=== PATIENT | male | born 1980 | race Two or more races ===

== ENCOUNTER 2021-06-09 10:11 | Emergency (ER) | payer OTHER, SELFPAY ==
--- NOTE | ~2021-06-09 | CT_ITS ---
EXAMINATION: CT CHEST, ABDOMEN AND PELVIS WITH CONTRAST CLINICAL INFORMATION: Fall from 15 feet. COMPARISON: None TECHNIQUE: 5 mm thin axial and reformatted 3 mm thin sagittal and axial images of chest, abdomen pelvis were obtained following IV 85 mL Omnipaque 350. DLP [id number] FINDINGS: Chest: The lungs are well-expanded and clear of acute pneumonic process. There is no prior nodules, mass or lung contusion. There is no pleural effusion, thickening or calcification. The heart size and the great vessels are normal caliber. There is no aortic dissection or aneurysm. There is no mediastinal mass or hematoma. The central trachea and the bronchi widely patent. No pericardial effusion seen. The thyroid lobes are symmetrical and normal. The axilla and chest wall is unremarkable There is no osseous abnormality. Especially there is no rib fracture. Abdomen and pelvis: There is mild hepatomegaly with diffuse attenuation of liver. No focal lesion or intrahepatic ductal dilatation seen. The gallbladder appears unremarkable. Visualized spleen, pancreas and bilateral adrenal glands unremarkable. Both kidneys are normal size, shape and position. No renal calculi, enhancing mass, cyst or hydronephrosis seen. There is no laceration. The bowel gas pattern is nonspecific scattered stool in the right colon. The small bowel loops are normal caliber. Appendix is normal caliber. No free air or free fluid seen. The urinary bladder is unremarkable. The prostate gland is normal size. No abnormal pelvic lymph nodes. Bone windows reveal. No lytic or sclerotic process. There is no visible fracture. CT/CT abdomen pelvis w con IMPRESSION: No traumatic abnormality seen involving the CT chest, abdomen pelvis. Diffuse hepatic steatosis without focal lesion.
--- NOTE | ~2021-06-09 | CT_ITS ---
EXAMINATION: CT CERVICAL SPINE WITHOUT CONTRAST CLINICAL INFORMATION: 15 foot fall at work with head, neck, chest, and abdominal pain COMPARISON: None TECHNIQUE: CT of the cervical spine without intrathecal contrast. This CT examination was performed using dose optimization techniques as appropriate, variously including the following: *Automated exposure control *Adjustment of mA and/or kV according to patient size (this includes techniques or standardized protocols for targeted exams where dose is matched to indication/reason for exam; i.e. extremities or head) *Use of iterative reconstruction technique DLP: 543.16 mGy-cm FINDINGS: No abnormal prevertebral soft tissue swelling is seen. No acute cervical spine fracture is noted. Disc spaces are generally maintained. Pterygoid plates intact. Visualized paranasal sinuses and mastoid air cells unremarkable. No mandibular joint abnormalities appreciated. No lung apical abnormality appreciated. CT/CT cervical spine wo con IMPRESSION: No acute cervical spine fracture.
--- NOTE | ~2021-06-09 | CT_ITS ---
EXAMINATION: CT HEAD WITHOUT CONTRAST CLINICAL INFORMATION: Fall from 15 feet with head, neck, chest, and abdominal pain. COMPARISON: None TECHNIQUE: Contiguous axial imaging was performed from the skull base to vertex without intravenous administration of contrast. This CT examination was performed using dose optimization techniques as appropriate, variously including the following: *Automated exposure control *Adjustment of mA and/or kV according to patient size (this includes techniques or standardized protocols for targeted exams where dose is matched to indication/reason for exam; i.e. extremities or head) *Use of iterative reconstruction technique DLP: 624 mGy-cm FINDINGS: There is no evidence of acute intracranial hemorrhage or territorial infarction. No abnormal mass effect or midline shift is seen. Parnell to white matter differentiation is well preserved. No extra-axial fluid collections are identified. The ventricles are normal in size. There is a right sided scalp hematoma. There is no abnormal attenuation within the brain parenchyma. The osseous structures are normal. The mastoid air cells and visualized portions of the paranasal sinuses are well aerated. CT/CT head/brain wo con IMPRESSION: No acute intracranial pathology.
[2021-06-09 10:15] VITALS: BP 155/70; PULSE 77; RESP 16; O2SAT 97; BMI 29.6
[2021-06-09] MEDS: oxyCODONE HCl Immed Release 5 MG TABLET PO (11:24)
[2021-06-09] MEDS: Acetaminophen 325 MG TABLET 975 MG PO (11:24)
[2021-06-09] MEDS: 0.9 % Sodium Chloride 1,000 ML 999 ML IVCONT (11:25)
[2021-06-09 11:37] LABS: MANUAL DIFF FLAG NO
[2021-06-09 11:41] LABS: Basophils Percent Auto 0.4 % (0-2); Eosinophils Absolute Auto 0.1 X10*3/uL (0.0-0.4); Eosinophils Percent Auto 0.6 % (0-4); Hematocrit 43.9 % (42.0-52.0); Hemoglobin 14.7 g/dl (14.0-18.0); Imm Gran Abs Auto 0.04 X10*3/uL (0.00-0.03); Imm Gran Pct Auto 0.5 % (0.0-0.4); Lymphocytes Absolute Auto 1.8 X10*3/uL (1.2-4.9); Lymphocytes Percent Auto 23.3 % (20-40); Mean Corpuscular HGB Conc 33.5 g/dl (31.0-36.0); Mean Corpuscular Hemoglobin 28.7 pg (27.0-33.0); Mean Corpuscular Volume 85.6 fL (80.0-98.0); Mean Platelet Volume 9.6 fL (9.4-12.4); Monocytes Absolute Auto 0.6 X10*3/uL (0.1-1.2); Monocytes Percent Auto 7.5 % (2-11); Neutrophils Absolute Auto 5.2 x10*3/uL (2.0-8.3); Neutrophils Percent Auto 67.7 % (45-73); Platelet Count 334 X10*3/uL (160-400); Red Blood Count 5.13 X10*6/uL (4.60-5.80); Red Cell Distribution Width 13.6 % (11.0-16.0); White Blood Count 7.7 X10*3/uL (4.8-10.8)
--- NOTE | 2021-06-09 11:45 | ED_ITS ---
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 He reports that he did hit his head and the right side of his head/scalp is very swollen and he is having pain there. Although he denies loss of consciousness or prolonged down time. He also reports right neck pain and rib cage pain. He denies any dizziness, chest pain, shortness of breath, dyspnea on exertion, orthopnea, palpitations, abdominal pain, urinary incontinence or retention, bowel incontinence or retention or any other injuries complaints or concerns at this time. He denies being on any blood thinners. MD complaint: fall Onset (ago): minute(s) (Prior to arrival) Fall from: from height (distance) (15 feet ) Fall witnessed: yes, by bystander (co-workers) Place fall occurred: work Loss of consciousness: none Prolonged down time: no Symptoms prior to fall: none Context: tripped/slipped Location of injury: head, neck, chest and abdomen Severity: severe Severity scale (1-10): >10 Quality: aching, spasming and throbbing Associated symptoms (after fall): neck pain and abdominal pain Related Data Previous Rx's Medication Instructions Recorded acetaminophen 500 mg tablet 1,000 mg PO QID PRN #14 tab 06/09/21 (Tylenol Extra Strength) cyclobenzaprine 10 mg tablet 10 mg PO Q8H PRN #14 tab 06/09/21 oxycodone 5 mg tablet 5 mg PO Q6H PRN #14 tab 06/09/21 Allergies Allergy/AdvReac Type Severity Reaction Status Date / Time No Known Allergies Allergy Verified 06/09/21 10:15 Review of Systems Review of Systems: Constitutional : No changes in activity, No lethargy, No recent prior head injury, No agitation, No increased fussiness ENT/Mouth : No Ear Pain, No Nasal discharge/drainage Eyes: No Eye Pain, No Swelling, No Redness, No Foreign Body, No Vision Changes Cardiovascular : No Chest Pain, No SOB Respiratory : No Cough Gastrointestinal : No Nausea, No Vomiting, No abdominal Pain Genitourinary : No Dysuria, No Urinary Frequency, No Urinary Incontinence, No Urgency, No Flank Pain Musculoskeletal : + head pain, neck pain, right rib cage pain, no joint pain, No neck stiffness, No back pain/injury Skin : No lacerations Neuro : No unsteady gait, No Paresthesias, No Loss of Consciousness, No altered mental status, No Headache Yes all other systems are reviewed and are negative COUNTS INCLUDE 234 BEDS AT THE [facility] Past Medical History Attestation statement: The following information was validated with the patient. Medical History No known health problems Social History Social History Advance Directives: No Advance Directives Information Provided: No Physical Exam Vital Signs: Vital Signs: Last Vital Signs Pulse 77 06/09/21 10:15 Resp 16 06/09/21 10:15 BP 155/70 H 06/09/21 10:15 Pulse Ox 97 06/09/21 10:15 BMI result Body Mass Index 29.6 vital signs have been reviewed as normal and appeared to be correct. Blood pressure 155/70. Heart rate normal. Respiration rate normal. Temperature normal. Oxygen saturation normal. Appearance: Alert. Oriented X3. No acute distress. Head: To the right scalp parietal aspect patient has moderate soft tissue swelling consistent with hematoma no obvious scalp depressions and there are no lacerations or active bleeding or foreign bodies noted. No step-offs or deformities noted. The rest of the external exam is within normal limits no other signs of trauma. There are no Rico signs or raccoon eyes noted. Eyes: PERRLA. EOMI. Conjunctiva and sclera normal. Eyelids normal. ENT: EAC normal. TM's Normal. No septal hematoma noted. No hemotympanum noted. Pharynx normal. Uvula midline. Moist mucous membranes. No lesions/ulcerations or masses noted on the tongue. Normal voice. No trismus noted. No drooling noted. No muffled voice noted. Neck: Normal inspection. Neck supple. FROM. No adenopathy. Thyroid Normal. No tracheal deviation noted. No crepitus is noted. No meningeal signs. No neck mass noted. No signs of trauma noted. Although patient does have tenderness palpation to bilateral paracervical musculature worse on the right side and some mid cervical tenderness although no step-offs or deformities are noted. Patient is neuro intact bilaterally and distally in all 4 extremities. Reflexes intact bilaterally and distally in all 4 extremities. CVS: Normal heart rate and rhythm. Heart sound normal. Pulses normal throughout. No murmurs/rales/gallops. Respiratory: No respiratory distress. Painless inspiration. Breath sounds normal. No wheezes/rales/rhonchi noted. Chest tenderness to the right anterior/lateral ribcage. No step-off noted. No deformities noted. No crep itus is noted. No signs of trauma noted. No accessory muscle usage noted or decreased air movement noted. No signs of trauma. Abdomen: Soft and moderate tenderness palpation to the right flank/right upper quadrant and right lower quadrant. Bowel sounds normal in all 4 quadrants. No distention noted. No organomegaly noted. No visible injury noted. Back: No CVA tenderness. Full range of motion noted. Nontender. No signs of trauma. Patient neuro intact bilaterally and distally on all 4 extremities. Patient's reflexes intact bilaterally and distally on all 4 extremities. No rashes/lesion/induration/fluctuance or signs of infection noted. Skin: Skin warm and dry. Normal skin color. Normal skin turgor. No rashes/lesions/lacerations noted. Extremities: Extremities exhibit normal range of motion and nontender. Neuro: Oriented X 3. No motor deficit. No sensory deficit. Reflexes normal. Normal steady gait. No focal neuro deficits noted. CN's II-XII intact bilaterally? Vascular: + radial pulses/+ 2 distal pedal pulses/+2 dorsalis pedis b/l. Normal cap refill. No cyanosis noted to upper extremity nails and lower extremity toes nails. 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 He reports that he did hit his head and the right side of his head/scalp is very swollen and he is having pain ther e. Plan: CT scan of brain/cervical spine/CT scan of chest with IV contrast and CT scan abdomen pelvis with IV contrast provide 975 mg of Tylenol and 5 mg of oxycodone and obtain labs along with a UA and re-evaluate. Reevaluation(s) Reevaluation #1: - labs reviewed and patient with BUN of 21. AST/ALT/alkaline phosphate 1 08/177/130 otherwise all other labs are within normal limits. UA revealed microscopic hematuria no evidence of UTI. Although his CT scan is negative for any intra-abdominal injuries and there is no kidney laceration. Therefore he has microscopic hematuria that is not noted in his regular urine there is no gross hematuria and he is urinating normally therefore at this time will DC home with instructions return if any new or worsening symptoms to follow up with primary care provider were connection. Patient understands agrees with this plan. Time: 13:31 MDM - Fall Medical Records Attestation: I reviewed the patient's medical records. Lab Data Attestation: I reviewed the patient's lab results. Result diagrams: 06/09/21 11:22 06/09/21 11:22 Labs: Lab Results 06/09/21 06/09/21 06/09/21 Range/Units 11:22 11:22 11:22 WBC 7.7 (4.8-10.8) X10*3/uL RBC 5.13 (4.60-5.80) X10*6/uL Hgb 14.7 (14.0-18.0) g/dl Hct 43.9 (42.0-52.0) % MCV 85.6 (80.0-98.0) fL MCH 28.7 (27.0-33.0) pg MCHC 33.5 (31.0-36.0) g/dl RDW 13.6 (11.0-16.0) % Plt Count 334 (160-400) X10*3/uL MPV 9.6 (9.4-12.4) fL Immature Gran % (Auto) 0.5 H (0.0-0.4) % Neut % (Auto) 67.7 (45-73) % Lymph % (Auto) 23.3 (20-40) % [place] % (Auto) 7.5 (2-11) % Eos % (Auto) 0.6 (0-4) % Baso % (Auto) 0.4 (0-2) % Lymph # (Auto) 1.8 (1.2-4.9) X10*3/uL [place] # (Auto) 0.6 (0.1-1.2) X10*3/uL Eos # (Auto) 0.1 (0.0-0.4) X10*3/uL Baso # (Auto) 0.0 (0.0-0.2) X10*3/uL Abs Immat Gran (auto) 0.04 H (0.00-0.03) X10*3/uL Absolute Neuts (auto) 5.2 (2.0-8.3) x10*3/uL Absolute Nucleated RBC 0.000 (0.0-0.012) X10*3/uL Nucleated RBC % (auto) 0.0 (0.0-0.2) /100WBC PT 13.0 (9.9-13.0) SEC INR 1.1 (0.9-1.1) APTT 27.9 (24.1-38.0) SEC Sodium 139 (135-145) mmol/L Potassium 4.6 (3.3-5.1) mmol/L Chloride 104 (96-108) mmol/L Carbon Dioxide 27 (22-29) mmol/L Anion Gap 13 (12-20) BUN 21 H (9-16) mg/dL Creatinine 0.86 (0.5-1.4) mg/dL Estim Creat Clear Calc 112.8 Estimated GFR > 60 Random Glucose 104 (60-115) mg/dL Calcium 9.6 (8.4-10.2) mg/dL Magnesium 2.1 (1.6-2.6) mg/dL Total Bilirubin 0.4 (0.0-1.0) mg/dL AST 108 H (5-37) U/L ALT 177 H (0-40) U/L Alkaline Phosphatase 130 H (39-117) U/L Total Protein 7.7 (6.5-8.0) g/dL Albumin 4.4 (3.5-5.0) g/dL Urine Color Urine Appearance Urine pH (5.0-8.0) Ur Specific [place] (1.005-1.025) Urine Protein (NEG-TRACE) MG/DL Urine Glucose (UA) (NEG) MG/DL Urine Ketones (NEG) MG/DL Urine Blood (NEG) Urine Nitrite (NEG) Ur Leukocyte Esterase (NEG) Urine RBC (0) /HPF Urine WBC (0-4) /HPF Ur Squamous Epith Cells /LPF Urine Bacteria /LPF 06/09/21 Range/Units 12:57 WBC (4.8-10.8) X10*3/uL RBC (4.60-5.80) X10*6/uL Hgb (14.0-18.0) g/dl Hct (42.0-52.0) % MCV (80.0-98.0) fL MCH (27.0-33.0) pg MCHC (31.0-36.0) g/dl RDW (11.0-16.0) % Plt Count (160-400) X10*3/uL MPV (9.4-12.4) fL Immature Gran % (Auto) (0.0-0.4) % Neut % (Auto) (45-73) % Lymph % (Auto) (20-40) % [place] % (Auto) (2-11) % Eos % (Auto) (0-4) % Baso % (Auto) (0-2) % Lymph # (Auto) (1.2-4.9) X10*3/uL [place] # (Auto) (0.1-1.2) X10*3/uL Eos # (Auto) (0.0-0.4) X10*3/uL Baso # (Auto) (0.0-0.2) X10*3/uL Abs Immat Gran (auto) (0.00-0.03) X10*3/uL Absolute Neuts (auto) (2.0-8.3) x10*3/uL Absolute Nucleated RBC (0.0-0.012) X10*3/uL Nucleated RBC % (auto) (0.0-0.2) /100WBC PT (9.9-13.0) SEC INR (0.9-1.1) APTT (24.1-38.0) SEC Sodium (135-145) mmol/L Potassium (3.3-5.1) mmol/L Chloride (96-108) mmol/L Carbon Dioxide (22-29) mmol/L Anion Gap (12-20) BUN (9-16) mg/dL Creatinine (0.5-1.4) mg/dL Estim Creat Clear Calc Estimated GFR Random Glucose (60-115) mg/dL Calcium (8.4-10.2) mg/dL Magnesium (1.6-2.6) mg/dL Total Bilirubin (0.0-1.0) mg/dL AST (5-37) U/L ALT (0-40) U/L Alkaline Phosphatase (39-117) U/L Total Protein (6.5-8.0) g/dL Albumin (3.5-5.0) g/dL Urine Color YELLOW Urine Appearance CLEAR Urine pH 6.5 (5.0-8.0) Ur Specific [place] 1.015 (1.005-1.025) Urine Protein NEG (NEG-TRACE) MG/DL Urine Glucose (UA) NEG (NEG) MG/DL Urine Ketones NEG (NEG) MG/DL Urine Blood 3+ H (NEG) Urine Nitrite NEG (NEG) Ur Leukocyte Esterase NEG (NEG) Urine RBC 50-75 H (0) /HPF Urine WBC 0 (0-4) /HPF Ur Squamous Epith Cells NONE /LPF Urine Bacteria NONE /LPF Imaging Data CT scan of brain/cervical spine without contrast: Attestation: I personally reviewed and interpreted this imaging study as follows: Radiologist's impression: FINDINGS: There is no evidence of acute intracranial hemorrhage or territorial infarction. No abnormal mass effect or midline shift is seen. Parnell to white matter differentiation is well preserved. No extra-axial fluid collections are identified. The ventricles are normal in size. There is a right sided scalp hematoma. There is no abnormal attenuation within the brain parenchyma. The osseous structures are normal. The mastoid air cells and visualized portions of the paranasal sinuses are well aerated. ? CT/CT head/brain wo con IMPRESSION: No acute intracranial pathology. FINDINGS: No abnormal prevertebral soft tissue swelling is seen. No acute cervical spine fracture is noted. Disc spaces are generally maintained. Pterygoid plates intact. Visualized paranasal sinuses and mastoid air cells unremarkable. No mandibular joint abnormalities appreciated. No lung apical abnormality appreciated. CT/CT cervical spine wo con IMPRESSION: No acute cervical spine fracture.? CT scan abdomen pelvis with IV contrast and CT scan of chest with IV contrast: Attestation: I personally reviewed and interpreted this imaging study as follows: Radiologist's impression: FINDINGS: Chest: The lungs are well-expanded and clear of acute pneumonic process. There is no prior nodules, mass or lung contusion. There is no pleural effusion, thickening or calcification. The heart size and the great vessels are normal caliber. There is no aortic dissection or aneurysm. There is no mediastinal mass or hematoma. The central trachea and the bronchi widely patent. No pericardial effusion seen. The thyroid lobes are symmetrical and normal. The axilla and chest wall is unremarkable There is no osseous abnormality. Especially there is no rib fracture. Abdomen and pelvis: There is mild hepatomegaly with diffuse attenuation of liver. No focal lesion or intrahepatic ductal dilatation seen. The gallbladder appears unremarkable. Visualized spleen, pancreas and bilateral adrenal glands unremarkable. Both kidneys are normal size, shape and position. No renal calculi, enhancing mass, cyst or hydronephrosis seen. There is no laceration. The bowel gas pattern is nonspecific scattered stool in the right colon. The small bowel loops are normal caliber. Appendix is normal caliber. No free air or free fluid seen. The urinary bladder is unremarkable. The prostate gland is normal size. No abnormal pelvic lymph nodes. Bone windows reveal. No lytic or sclerotic process. There is no visible fracture. CT/CT chest w con IMPRESSION: No traumatic abnormality seen involving the CT chest, abdomen pelvis. ? Diffuse hepatic steatosis without focal lesion. FINDINGS: Chest: The lungs are well-expanded and clear of acute pneumonic process. There is no prior nodules, mass or lung contusion. There is no pleural effusion, thickening or calcification. The heart size and the great vessels are normal caliber. There is no aortic dissection or aneurysm. There is no mediastinal mass or hematoma. The central trachea and the bronchi widely patent. No pericardial effusion seen. The thyroid lobes are symmetrical and normal. The axilla and chest wall is unremarkable There is no osseous abnormality. Especially there is no rib fracture. Abdomen and pelvis: There is mild hepatomegaly with diffuse attenuation of liver. No focal lesion or intrahepatic ductal dilatation seen. The gallbladder appears unremarkable. Visualized spleen, pancreas and bilateral adrenal glands unremarkable. Both kidneys are normal size, shape and position. No renal calculi, enhancing mass, cyst or hydronephrosis seen. There is no laceration. The bowel gas pattern is nonspecific scattered stool in the right colon. The small bowel loops are normal caliber. Appendix is normal caliber. No free air or free fluid seen. The urinary bladder is unremarkable. The prostate gland is normal size. No abnormal pelvic lymph nodes. Bone windows reveal. No lytic or sclerotic process. There is no visible fracture. CT/CT abdomen pelvis w con IMPRESSION: No traumatic abnormality seen involving the CT chest, abdomen pelvis. ? Diffuse hepatic steatosis without focal lesion. Critical Care Time Critical Care Time Critical Care Time: Yes Total Critical Care Time: 60 Attestation: I personally attest to this time spent taking care of the patient Discharge Plan Discharge Clinical Impression: Closed head injury, Concussion without loss of consciousness, Work related injury, Hematoma of scalp, Fall, Chest wall muscle strain, Abdominal muscle strain, Elevated LFTs, Fatty liver, Hematuria Patient Disposition: Home, Self-Care Instructions: Concussion (ED), Head Injury (ED), Scalp Contusion in Adults (ED) Additional Instructions: Your liver enzymes were elevated and you have a fatty liver you should have repeat blood work in the next few weeks with her primary care provider. Return if any new or worsening symptoms he did not have any broken bones today. Follow up with [facility]. Corina enzimas hep?carla se elevaron y usted tiene un h?gado graso que debe repetir el an?lisis de chidi en las pr?ximas semanas con gonzalez proveedor de atenci?n primaria. Regrese si hay alg?n s?ntoma nuevo o que empeora no ten?a maria guadalupe?n hueso roto hoy. Seguimiento con conexi?n de trabajo. Prescriptions: New oxycodone 5 mg tablet 5 mg PO Q6H PRN (Reason: pain) Qty: 14 0RF cyclobenzaprine 10 mg tablet 10 mg PO Q8H PRN (Reason: Muscle spasm) Qty: 14 0RF acetaminophen [Tylenol Extra Strength] 500 mg tablet 1,000 mg PO QID PRN (Reason: fever or pain) Qty: 14 0RF Referrals: [facility] [Provider Group] - 2 days Physician,Unknown J [Primary Care Provider] - 2 days (your pcp) Stand Alone Forms: Work/School Release Print Language: Icelandic
[2021-06-09 11:49] LABS: INTERNATIONAL NORM RATIO 1.1 (0.9-1.1)
[2021-06-09 11:52] LABS: Partial Thromboplastin Time 27.9 SEC (24.1-38.0)
[2021-06-09 12:00] LABS: Alanine Aminotransferase 177 U/L (0-40); Albumin Level 4.4 g/dL (3.5-5.0); Alkaline Phosphatase 130 U/L (39-117); Anion Gap 13 (12-20); Aspartate Amino Transferase 108 U/L (5-37); Bilirubin Total 0.4 mg/dL (0.0-1.0); Blood Urea Nitrogen 21 mg/dL (9-16); Calcium 9.6 mg/dL (8.4-10.2); Carbon Dioxide 27 mmol/L (22-29); Chloride 104 mmol/L (96-108); Creatinine Clr Calc Pharmacy 112.8; Estimated Glomerular Filt Rate > 60; Glucose Random 104 mg/dL (60-115); Magnesium 2.1 mg/dL (1.6-2.6); Potassium 4.6 mmol/L (3.3-5.1); Sodium 139 mmol/L (135-145); Total Protein 7.7 g/dL (6.5-8.0)
[2021-06-09] MEDS: iohexoL 350 MG/ML 100 ML INFUS..BTL IV (12:08)
[2021-06-09] MEDS: Cyclobenzaprine HCl 10 MG TABLET PO (13:10)
[2021-06-09 13:11] LABS: Appearance Urine CLEAR; Color Urine YELLOW; Glucose Urine UA NEG (NEG); Leukocyte Esterase Urine NEG (NEG); Nitrite Urine NEG (NEG); PH 6.5 (5.0-8.0); Specific Gravity - Urine 1.015 (1.005-1.025); UACC Culture Trigger NO; Urine Blood 3+ (NEG); Urine Ketones NEG (NEG); Urine Protein NEG (NEG-TRACE)
[2021-06-09 13:20] LABS: RBC Urine 50-75 /HPF (0); WBC Urine 0 /HPF (0-4)
[2021-06-09 13:54] VITALS: BP 141/86; PULSE 67; RESP 16; TEMP 36.9; O2SAT 97
== END 2021-06-09 13:55 | disposition home or self-care (01) ==
PROVIDERS: Physician Assistant Medical; Emergency Provider Emergency Medicine
DX: S06.0X0A Concussion without loss of consciousness, initial encounter (principal); S09.90XA Unspecified injury of head, initial encounter; S00.03XA Contusion of scalp, initial encounter; S29.011A Strain of muscle and tendon of front wall of thorax, initial encounter; S39.011A Strain of muscle, fascia and tendon of abdomen, initial encounter; W17.89XA Other fall from one level to another, initial encounter; R31.29 Other microscopic hematuria; R79.89 Other specified abnormal findings of blood chemistry; K76.0 Fatty (change of) liver, not elsewhere classified; R10.11 Right upper quadrant pain; R10.31 Right lower quadrant pain; Y93.89 Activity, other specified; Y92.71 Barn as the place of occurrence of the external cause; Y99.0 Civilian activity done for income or pay
CPT/HCPCS: 36415; 70450; 71260; 72125; 74177; 80053; 81001; 83735; 85025; 85610; 85730; 96360; 99284; 99291; Q9967

== ENCOUNTER → 2021-06-11 10:06 | Outpatient (BNVA) | payer OTHER, SELFPAY | PROVIDERS: Visit Provider Internal Medicine | DX: S29.011A Strain of muscle and tendon of front wall of thorax, initial encounter (principal); S00.03XA Contusion of scalp, initial encounter; S46.911A Strain of unspecified muscle, fascia and tendon at shoulder and upper arm level, right arm, initial encounter; W17.89XA Other fall from one level to another, initial encounter | CPT/HCPCS: 99203 ==

== ENCOUNTER → 2021-06-18 09:14 | Outpatient (BNVA) | payer OTHER, SELFPAY | PROVIDERS: Visit Provider Physician Assistant | DX: S29.8XXA Other specified injuries of thorax, initial encounter (principal); S09.90XA Unspecified injury of head, initial encounter; S49.91XA Unspecified injury of right shoulder and upper arm, initial encounter; W17.89XA Other fall from one level to another, initial encounter | CPT/HCPCS: 99214 ==

== ENCOUNTER → 2021-06-25 14:43 | Outpatient (BNVA) | payer OTHER, SELFPAY | PROVIDERS: Visit Provider Internal Medicine | DX: S00.03XA Contusion of scalp, initial encounter (principal); M54.9 Dorsalgia, unspecified; W18.30XA Fall on same level, unspecified, initial encounter | CPT/HCPCS: 99213 ==

== ENCOUNTER → 2021-07-05 14:33 | Outpatient (BNVA) | payer OTHER, SELFPAY | PROVIDERS: Visit Provider Internal Medicine | DX: S06.9X0A Unspecified intracranial injury without loss of consciousness, initial encounter (principal); W18.30XA Fall on same level, unspecified, initial encounter; M54.9 Dorsalgia, unspecified | CPT/HCPCS: 99214 ==

== ENCOUNTER → 2021-07-15 13:41 | Outpatient (BNVA) | payer OTHER, SELFPAY | PROVIDERS: Visit Provider Internal Medicine | DX: S09.90XD Unspecified injury of head, subsequent encounter (principal); W18.30XD Fall on same level, unspecified, subsequent encounter; R41.89 Other symptoms and signs involving cognitive functions and awareness | CPT/HCPCS: 99213 ==

== ENCOUNTER 2021-08-09 18:49 | Outpatient (REF) | payer OTHER, SELFPAY ==
--- NOTE | ~2021-08-09 | MR_ITS ---
EXAMINATION: MRI BRAIN WITHOUT CONTRAST. CLINICAL INFORMATION: 41-year-old with history of fall, contusion, with memory impairment. COMPARISON: 06/09/2021 CT brain. TECHNIQUE: Multiplanar multisequence MR imaging of the brain was done. FINDINGS: BRAIN VOLUME: Within normal limits. STRUCTURAL: No malformations. BRAIN AND MENINGES: DWI sequence demonstrates no restricted diffusion. Specifically, there is no evidence for acute or subacute cerebral ischemia. A few punctate scattered T2 hyperintensities in the white matter of both cerebral hemispheres are noted, which are nonspecific findings. Otherwise the brain is normal in morphology and signal intensity. Gradient refocused imaging demonstrates no evidence for hemorrhage, hemosiderin staining or abnormal mineral deposition. No extra-axial fluid collections, space-occupying process or mass effect. VENTRICLES AND SUBARACHNOID SPACES: The ventricular system and subarachnoid spaces are within normal limits without hydrocephalus. ORBITAL STRUCTURES: The visualized orbital structures are grossly unremarkable within the limitations of the study. VASCULAR: Signal voids are noted in the visualized major intracranial vessels. OSSEOUS STRUCTURES, SINUSES/MASTOIDS, EXTRACRANIAL SOFT TISSUES: Osseous marrow signal intensity appears grossly unremarkable. Minor mucosal thickening in the ethmoid complex noted. 7 mm ovoid nodular structure in the superficial lobe of the left parotid gland, likely an intraparotid lymph node with other similar appearing structures in the right parotid gland. MR/MR head/brain wo con IMPRESSION: 1. Scattered nonspecific punctate white matter T2 hyperintensities in the cerebral hemispheres of indeterminate significance. 2. No intracranial traumatic sequelae. No evidence for hemorrhage, hemosiderin staining or extra-axial fluid collection. 3. Mild paranasal sinus mucosal inflammatory changes in the ethmoid complex. Probable small intraparotid lymph nodes in both parotid glands.
== END 2021-08-09 18:50 | disposition home or self-care (01) ==
LOC: HO.MRI 18:49
PROVIDERS: Visit Provider Internal Medicine
DX: S00.93XD Contusion of unspecified part of head, subsequent encounter (principal); R41.82 Altered mental status, unspecified; Z91.81 History of falling
CPT/HCPCS: 70551

== ENCOUNTER 2021-08-13 14:00 | Outpatient (RCR) | payer OTHER, SELFPAY ==
--- NOTE | 2021-07-13 14:29 | MHC.PT.EP ---
[facility] [place] Office [place] Office [place] Office [address] Karen Aquino [address] [phone] F: [phone] F: [phone] F: [phone] F: [phone] Physical Therapy Plan of Care Date of Evaluation: Date of Surgery: NA Diagnosis: Fall 15 feet, back pain Assessment: Orion is a 41 year old male who is referred to PT for fall 15 feet, back pain . Pt reports of sustaining a fall at work about 3 weeks back. He fell off a ladder while he was changing a light bulb. He went to the ED after the fall and then followed up with WC. On PT examination he reports of having 8/10 pain with prolonged sitting or standing, TTP over L2-3 and 4, pain with lumbar ROM, decreased muscle strength and altered posture. He is independent with ADLS but has pain. 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 He would benefit from skilled PT to address the aforementioned impairments and improve tolerance to functional activities. Frequency and Duration: The patient will be seen 2/week for 5 weeks Short Term Goals: 1. Pt will have 50% decrease in pain which will enable him to sit for upto 30 minutes in 2 weeks. 2. Pt will be able to move trunk through all planes of motion without pain which will enable him to dress lower body without pain in 3 weeks. Specialties Operator Goals: 1. Pt will demonstrate good awareness of posture and body mechanics with bending and lifting so as to prevent onset of back pain at work in 4 weeks. 2. Pt will return to PLOF in 5 weeks. Treatment Plan: Modalities to reduce pain, spasms and effusion. Manual therapy to restore motion and function. Therapeutic exercise to improve strength and flexibility. Neuromuscular re-education for posture and balance. Therapeutic activities to return to functional activities of daily living. Electronically signed by: Tanvi Cannon PT DPT Please sign and return to therapist. Thank you for your referral.
--- NOTE | 2021-09-08 14:58 | MHC.PT.DC ---
[facility] [place] [facility] [place] [facility] [place] [facility] [address] Karen Aquino [address] [phone] F: [phone] F: [phone] F: [phone] F: [phone] Physical Therapy Discharge Report Diagnosis: Fall 15 feet, back pain Date of Surgery: NA Date of Evaluation: 07/13/21 Date of Discharge: 09/08/21 Treatments to Date: 6 Cancellations to Date: 2 No Shows to Date: 1 Discharge Status: Improved Function Independent with HEP Discharge Summary: Orion improved with PT and was independent with his HEP during his last visit. He stated that he does not feel 100% and would like to come for a couple of visits however did not schedule any visits. He is therefore being d/c from PT. Electronically signed by: Tanvi Cannon PT DPT Please sign and return to therapist. Thank you for your referral.
== END 2021-09-08 14:59 | disposition home or self-care (01) ==
LOC: HO.PT 14:00
PROVIDERS: Visit Provider Internal Medicine
DX: M54.9 Dorsalgia, unspecified (principal); Z91.81 History of falling
CPT/HCPCS: 97110; 97112; 97140; 97161; 97530

== ENCOUNTER → 2021-08-20 15:23 | Outpatient (BNVA) | payer OTHER, SELFPAY | PROVIDERS: Visit Provider Internal Medicine | DX: S09.90XD Unspecified injury of head, subsequent encounter (principal); W19.XXXD Unspecified fall, subsequent encounter | CPT/HCPCS: 99213 ==